=== PATIENT | male | born 1960 | race Caucasian/White ===

== ENCOUNTER → 2024-11-02 14:13 | Outpatient (CLI) | payer MEDICARE, OTHER, SELFPAY ==
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
== END ==
LOC: RAD 14:16
PROVIDERS: PCP Nurse Practitioner Family; Referring Provider Nurse Practitioner Family; Visit Provider Nurse Practitioner Family
DX: M47.817 Spondylosis without myelopathy or radiculopathy, lumbosacral region (principal); M51.370 Other intervertebral disc degeneration, lumbosacral region with discogenic back pain only; M51.34 Other intervertebral disc degeneration, thoracic region; M50.321 Other cervical disc degeneration at C4-C5 level
CPT/HCPCS: 72050; 72072; 72100

== ENCOUNTER → 2025-03-06 09:57 | Outpatient (CLI) | payer MEDICARE, OTHER, SELFPAY ==
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
== END ==
PROVIDERS: PCP Nurse Practitioner Family; Referring Provider Nurse Practitioner Family; Visit Provider Physical Medicine & Rehabilitation
DX: H74.32 Partial loss of ear ossicles (principal)
CPT/HCPCS: 70250

== ENCOUNTER → 2025-03-12 16:07 | Outpatient (CLI) | payer MEDICARE, OTHER, SELFPAY ==
--- NOTE | 2025-03-12 16:10 | DI.MRI.S_ITS ---
PROCEDURE: MR CERVICAL SPINE WO CON INDICATIONS: Lumbar Stenosis TECHNIQUE: Noncontrast sagittal T1 spin echo and T2 fast spin echo, sagittal STIR, foraminal oblique sagittal T2 fast spin echo, and axial gradient echo or T2 fast spin echo through the cervical spine. COMPARISON: None. FINDINGS: Image quality: Excellent. Alignment and Curvature: There is normal bony alignment. Bone Marrow: Marrow demonstrates normal overall signal. Spinal Cord: Visualized spinal cord has normal size and signal. No cerebellar tonsillar herniation. Paraspinous Soft Tissues: No paravertebral masses. Prevertebral soft tissues are normal in thickness. C2-C3: Normal appearance. C3-C4: There is posterior osteophyte/disc bulge complex as well as left uncinate process hypertrophy. There is mild to moderate left foraminal and left lateral recess stenosis, no significant central spinal stenosis. C4-C5: There is posterior osteophyte/disc bulge complex. There is mild to moderate central spinal stenosis and mild bilateral foraminal stenosis. C5-C6: There is posterior osteophyte/disc bulge complex with mild central spinal stenosis and mild left foraminal narrowing C6-C7: There is posterior osteophyte/disc bulge complex and uncinate process arthropathy. There is no significant spinal stenosis. C7-T1: No significant spinal stenosis IMPRESSION: 1. Multilevel degenerative changes, most prominent at C4-C5, with mild to moderate central spinal stenosis at this level. 2. No definite soft disc extrusion or acute osseous lesions. Dictated by: Mathew Maldonado M.D. on 03/13/2025 at 20:24 Approved by: Mathew Maldonado M.D. on 03/13/2025 at 20:29
--- NOTE | 2025-03-12 16:10 | DI.MRI.S_ITS ---
PROCEDURE: MR LUMBAR SPINE WO CON INDICATIONS: Lumbar Stenosis TECHNIQUE: Noncontrast sagittal T1 spin echo and T2 fast echo, sagittal STIR, and T2 fast spin echo through the lumbar spine. In cases with scoliosis, additional coronal T2 fast spin echo may be performed. COMPARISON: None. FINDINGS: Image quality: Excellent. Alignment and Curvature: There is normal bony alignment. Bone Marrow: Marrow is of normal overall signal. No acute vertebral body compression fractures. Spinal Cord: Conus medullaris terminates at the T12 level. Visualized cord demonstrates normal signal and size. Paraspinous Soft Tissues: No paravertebral masses. T12-L1: Normal appearance. L1-L2: There is mild disc bulge and bilateral facet arthropathy without significant spinal stenosis. L2-L3: No significant spinal stenosis L3-L4: There is mild bilateral facet arthropathy and ligamentum flavum thickening, no significant spinal stenosis L4-L5: There is disc bulge as well as bilateral facet arthropathy and ligamentum flavum thickening. There is mild central spinal stenosis as well as mild left foraminal stenosis L5-S1: There is disc bulge as well as superimposed posterior extrusion measuring 4 mm in craniocaudal extent and 1.3 x 0.5 cm in transverse diameter. There is inferior migration to supra pedicular level. There is bilateral facet arthropathy. There is at least moderate degree of left lateral recess and left foraminal stenosis, no significant central spinal stenosis. IMPRESSION: 1. Multilevel degenerative changes, most prominent at L5-S1, also with a disc extrusion at this level and significant left lateral spinal stenosis. 2. No acute osseous lesions seen. Delete Dictated by: Mathew Maldonado M.D. on 03/13/2025 at 20:31 Approved by: Mathew Maldonado M.D. on 03/13/2025 at 20:37
== END ==
LOC: MRI 16:10
PROVIDERS: PCP Nurse Practitioner Family; Referring Provider Physical Medicine & Rehabilitation; Visit Provider Physical Medicine & Rehabilitation
DX: M48.02 Spinal stenosis, cervical region (principal); M50.31 Other cervical disc degeneration, high cervical region; M47.812 Spondylosis without myelopathy or radiculopathy, cervical region; M48.062 Spinal stenosis, lumbar region with neurogenic claudication; M51.369 Other intervertebral disc degeneration, lumbar region without mention of lumbar back pain or lower extremity pain; M47.816 Spondylosis without myelopathy or radiculopathy, lumbar region; M51.27 Other intervertebral disc displacement, lumbosacral region; M47.817 Spondylosis without myelopathy or radiculopathy, lumbosacral region; M48.07 Spinal stenosis, lumbosacral region; M25.78 Osteophyte, vertebrae; N31.9 Neuromuscular dysfunction of bladder, unspecified; R39.15 Urgency of urination
CPT/HCPCS: 72141; 72148

== ENCOUNTER 2025-05-03 08:08 | Outpatient (CLI) | payer MEDICARE, OTHER, SELFPAY ==
[2025-05-03] VITALS (7 sets, daily range): BP systolic 102–112; BP diastolic 53–69; PULSE 50–58; RESP 16–21; O2SAT 95–99
[2025-05-03] MEDS: MIDAZOLAM 2 MG/2 ML VIAL IV (09:22)
--- NOTE | 2025-05-03 09:38 | P.PCN_ITS ---
Date/Time/Diagnoses Date of procedure: 05/03/25 Time of procedure: 09:38 Pre-procedure diagnosis: 1. FACET ARTHROPATHY Post-procedure diagnosis: same Procedure Notes Procedure: 1. Right L4, L5 and S1 MB BLOCKS LA Indications: Romeo is referred by CAROLE Larios for treatment of Right Axial LBP. Physician: Jose Higgins Total Fluoroscopy time (seconds): 5 Total sedation minutes: 10 Complications: none Procedure in detail & Post-procedure care: DESCRIPTION OF PROCEDURE Fluoroscopically guided, contrast-controlled right L4, L5 and S1 medial branch blocks with 0.5cc of 0.5% Marcaine. Following review of allergy and review of potential side effects and complications, including, but not necessarily limited to, infection, allergic reaction, local tissue breakdown, nerve injury, paralysis, stroke and possible , the patient indicated that the patient understood and agreed to proceed. An informed consent document was signed by the patient, witnessed by a nurse, and placed in the patient's chart. After review of previous anaesthesic history and IV conscious sedation the patient was deemed safe to proceed with today?s procedure with IV conscious sedation as ASA class II designation. Safety time-out was performed to confirm patient ID, procedure to be performed and site of procedure. IV sedation was accomplished with a combination of 2mg of Versed was administered by the RN after DO order, titrated to patient comfort during the course of the procedure while the patient remained responsive to all verbal commands In the prone position, following sterile prep and drape of the lumbar region, the right L4, L5 and S1 anatomical location of the medial branch of the dorsal ramus was identified fluoroscopically. Subsequently an anesthetic skin wheal using 1% lidocaine solution was initiated at each of the anatomical spots. Subsequently then a 22-gauge 3.5-inch spinal needle was atraumatically introduced and advanced under fluoroscopic guidance at each of the corresponding sites at the right L4, L5 and S1 MB. After negative aspiration, 0.2 cc of Isovue 200 was injected, confirming placement without vascular or intrathecal uptake. Subsequently then 0.5 cc of 0.5% Marcaine solution was injected at each of the corresponding sites at the right L4, L5 and S1 medial branch locations. The patient tolerated the procedure well without signs or symptoms of complications. The procedure tolerated the procedure well without signs or symptoms of complications prior to transfer to the recovery area continued monitoring without incident. Post-procedure, the patient was monitored initiating provocative activities to measure the amount of relief from block of the facetogenic pain. The patient reported a VAS of 7 prior to the procedure and a post-procedure VAS of 1. It has been a pleasure to assist in the diagnostic and therapeutic care of your patient. POST OP INSTRUCTIONS The patient was provided with a Pain Log to complete over the next several hours and subsequent days prior to the patient's follow up with the ordering physician. If the patient has industrial pipefitter journeyman relief to the solution applied, then they may be a candidate for medial branch rhizotomy. The patient is aware, was provided, once again, with a Pain Log and will follow up with the referring physician for review and clinical correlation.
== END 2025-05-03 10:11 | disposition home or self-care (01) ==
LOC: RAD 08:09
PROVIDERS: PCP Nurse Practitioner Family; Referring Provider Physical Medicine & Rehabilitation; Visit Provider Physical Medicine & Rehabilitation
DX: M47.816 Spondylosis without myelopathy or radiculopathy, lumbar region (principal); M47.817 Spondylosis without myelopathy or radiculopathy, lumbosacral region
CPT/HCPCS: 64493; 64494; 99152; J2250

== ENCOUNTER 2025-06-07 09:30 | Outpatient (CLI) | payer MEDICARE, OTHER, SELFPAY ==
[2025-06-07] VITALS (7 sets, daily range): BP systolic 99–117; BP diastolic 64–73; PULSE 51–59; RESP 11–18; TEMP 36.2; O2SAT 94–96
[2025-06-07] MEDS: MIDAZOLAM 2 MG/2 ML VIAL IV (11:01)
[2025-06-07] MEDS: LIDOCAINE 2% INJ MDV 20ML 5 ML INJ (11:07)
--- NOTE | 2025-06-07 11:14 | P.PCN_ITS ---
Date/Time/Diagnoses Date of procedure: 06/07/25 Time of procedure: 11:14 Pre-procedure diagnosis: Lumbar Facet Arthropathy Post-procedure diagnosis: same Procedure Notes Procedure: 1. Right L4, L5 and S1 MB BLOCKS SA Indications: Romeo is referred by CAROLE Larios for treatment of Right Axial LBP. Physician: Jose Higgins Total Fluoroscopy time (seconds): 4 Total sedation minutes: 10 Complications: none Procedure in detail & Post-procedure care: DESCRIPTION OF PROCEDURE Fluoroscopically guided, contrast-controlled right L4, L5 and S1 medial branch blocks with 0.5cc of 2% Lidocaine. Following review of allergy and review of potential side effects and complications, including, but not necessarily limited to, infection, allergic reaction, local tissue breakdown, nerve injury, paralysis, stroke and possible , the patient indicated that the patient understood and agreed to proceed. An informed consent document was signed by the patient, witnessed by a nurse, and placed in the patient's chart. After review of previous anaesthesic history and IV conscious sedation the patient was deemed safe to proceed with today?s procedure with IV conscious sedation as ASA class II designation. Safety time-out was performed to confirm patient ID, procedure to be performed and site of procedure. IV sedation was accomplished with a combination of 2mg of Versed was administered by the RN after DO order, titrated to patient comfort during the course of the procedure while the patient remained responsive to all verbal commands In the prone position, following sterile prep and drape of the lumbar region, the right L4, L5 and S1 anatomical location of the medial branch of the dorsal ramus was identified fluoroscopically. Subsequently an anesthetic skin wheal using 1% lidocaine solution was initiated at each of the anatomical spots. Subsequently then a 22-gauge 3.5-inch spinal needle was atraumatically introduced and advanced under fluoroscopic guidance at each of the corresponding sites at the right L4, L5 and S1 MB. After negative aspiration, 0.2 cc of Isovue 200 was injected, confirming placement without vascular or intrathecal uptake. Subsequently then 0.5 cc of 2% Lidocaine solution was injected at each of the corresponding sites at the right L4, L5 and S1 medial branch locations. The patient tolerated the procedure well without signs or symptoms of complications. The procedure tolerated the procedure well without signs or symptoms of complications prior to transfer to the recovery area continued monitoring without incident. Post-procedure, the patient was monitored initiating provocative activities to measure the amount of relief from block of the facetogenic pain. The patient reported a VAS of 7 prior to the procedure and a post-procedure VAS of 1. It has been a pleasure to assist in the diagnostic and therapeutic care of your patient. POST OP INSTRUCTIONS The patient was provided with a Pain Log to complete over the next several hours and subsequent days prior to the patient's follow up with the ordering physician. If the patient has outdoor studies director relief to the solution applied, then they may be a candidate for medial branch rhizotomy. The patient is aware, was provided, once again, with a Pain Log and will follow up with the referring physician for review and clinical correlation.
== END 2025-06-07 12:30 | disposition home or self-care (01) ==
LOC: RAD 09:31
PROVIDERS: PCP Nurse Practitioner Family; Referring Provider Physical Medicine & Rehabilitation; Visit Provider Physical Medicine & Rehabilitation
DX: M47.816 Spondylosis without myelopathy or radiculopathy, lumbar region (principal); M47.817 Spondylosis without myelopathy or radiculopathy, lumbosacral region
CPT/HCPCS: 64493; 64494; 99152; J2250